=== PATIENT | male | born 1945 | race Caucasian/White ===

== ENCOUNTER 2018-08-01 17:24 | Emergency (ER) | payer MEDICARE ==
[~2018-08-01] VITALS: Ht 175.3 cm; Wt 88.6 kg
[2018-08-01 17:32] VITALS: Ht 175.3 cm; Wt 88.6 kg
[2018-08-01] MEDS ORDERED: VALIUM 2 MG TAB2 MG PO (20:09)
[2018-08-01] MEDS ORDERED: EC-NAPROSYN500 MG PO (20:09)
[2018-08-01 20:25] VITALS: BP 185/85
== END 2018-08-01 20:25 | disposition home or self-care (01) ==
LOC: D.ER 17:24
DX: S39.012A Strain of muscle, fascia and tendon of lower back, initial encounter (principal); V43.52XA Car driver injured in collision with other type car in traffic accident, initial encounter; Y93.89 Activity, other specified; Y92.410 Unspecified street and highway as the place of occurrence of the external cause; M62.830 Muscle spasm of back; F07.81 Postconcussional syndrome; M79.601 Pain in right arm